=== PATIENT | female | born 1985 | race African-American/Black ===

== ENCOUNTER 2023-02-02 20:12 | Emergency (ER) | payer OTHER ==
--- OUTSIDE RECORDS SUMMARY | 2023-02-02 20:43 | XMS REPORT | Continuity of Care Document ---
:1985 Author Organization [facility] t Address [address] [facility] [address] [place] [address] Care Team Providers Name Role [facility], [facility] Primary Care Physician Unavailable GLENNA HOUSTON Attending Clinician Unavailable GLENNA HOUSTON Attending Clinician Unavailable Glenna Houston MD Attending Clinician RUPAL LI Attending Clinician Unavailable JEFFY POOL Attending Clinician Unavailable NATE MUNOZ Admitting Clinician Unavailable JEFFY POOL Admitting Clinician Unavailable Payers Payer Name Policy Type Policy Number Effective Date Expiration Date [facility] [id number] 2022 00:00:00 Problems This patient has no known problems. Allergies, Adverse Reactions, Alerts Allergy Allergy Status Severity Reaction(s) Onset Inactive Treating Comm ents Source Name Type Date Date Clinician Vancomyc Propensi Active Swelling Univ ers in ty to 01-28 ity of adverse 00:00: [place] reaction 00 Medical s Branch PENICILL DRUG Active Anaphylaxis Uni vers IN INGREDI 01-28 ity of 00:00: [place] 00 Medical Branch VANCOMYC DRUG Active Hives Univers IN INGREDI 01-28 ity of 00:00: 00 Medical Branch Penicill Propensi Active Anaphylaxis U nivers in ty to 01-28 ity of adverse 00:00: [place] reaction 00 Medical s Branch NO KNOWN Drug Active Univers ALLERGIE Class ity of S [facility] Social History Social Habit Start Date Stop Date Quantity Comments Source Exposure to 2023-01-17 2023-01-27 Not sure [facility] SARS-CoV-2 (event) 00:00:00 13:55:00 Medica l Branch Sex Ass[birth year] At [birth year] [facility] y of [place] 00:00:00 00:00:00 Medical Branch Smoking Status Start Date Stop Date Source Tobacco smoking consumption Univ [facility] Branch Medications Ordered Filled Start Stop Current Ordering Indication Dosage Frequency Signature Comments Components Source Medication Medication Date Date Medication? Clinician (SIG) Name Name amLODIPine Yes Univers 5 mg tablet 3-10 ity of 00:00: Medical Branch amLODIPine Yes Univers 5 mg tablet 3-10 ity of 00:00: [facility] Vital Signs Vital Name Observation Time Observation Value Comments Source Systolic blood 2023-01-28 18:47:00 140 mm[Hg] Univer sity of pressure [facility] Diastolic blood 2023-01-28 18:47:00 104 mm[Hg] Unive rsity of pressure [facility] Heart rate 2023-01-28 18:47:00 82 /min [facility] Body temperature 2023-01-28 18:42:00 36.33 [facility] Respiratory rate 2023-01-28 18:42:00 16 /min [facility] Body height 2023-01-28 18:42:00 170.2 cm [facility] Body weight 2023-01-28 18:42:00 59.149 kg [facility] BMI 2023-01-28 18:42:00 20.42 kg/m2 [facility] Oxygen saturation in 2023-01-28 18:42:00 100 /min [facility] Arterial blood by [facility] Pulse oximetry Branch Procedures This patient has no known procedures. Encounters Start End Encounter Admission Attending Care Care Encounter Source Date/Time Date/Time Type Type Clinicians Facility Department ID 2023-07-22 2023-07-22 Outpatient R GLENNA HOUSTON [facility] [id number] Univers 13:30:00 13:30:00 GLENNA HOUSTON [facility] 2023-06-30 2023-06-30 Outpatient R KATE HOUSTONNEFelix [facility] [id number] Univers 20:00:00 20:00:00 GLENNA HOUSTON [facility] 2023-01-28 2023-01-28 Office Celso [facility] [id number] [facility] 14:00:00 14:30:00 Visit Glenna Carvalho [facility] [id number] [place] [id number] [facility] [id number] [facility] AND [facility] [address] [facility] 2023-01-28 2023-01-28 Outpatient R GLENNA HOUSTON [facility] [id number] [facility] 14:00:00 14:07:29 GLENNA HOUSTON [facility] 2022-09-03 2022-09-05 Inpatient E JESSE LI MED [id number] 01:30:00 12:10:00 RUPAL bhatti [facility] 2022-04-25 2022-04-29 Inpatient E JAI POOL MED [id number] [facility] 19:17:00 12:00:00 DOMINICO Results This patient has no known results.
[2023-02-02] MEDS ORDERED: ONDANSETRON 4 MG/2 ML VIAL ONE (21:25)
[2023-02-02] MEDS ORDERED: NA CHLORIDE 0.9% 1,000 ML ONE (21:25)
[2023-02-02] MEDS ORDERED: CEFTRIAXONE 2000 MG/VIAL ONE (21:25)
[2023-02-02] MEDS ORDERED: NA CHLORIDE 0.9% 50 ML ONE (21:25)
[2023-02-02 21:55] LABS: Absolute Lymphocytes (CBC) 2.1 K/uL (0.7-4.9); Hematocrit 35.7 % (36.0-45.0); MCV 89.2 fL (80-100); MPV 8.6 fL (7.6-11.3)
[2023-02-02 21:59] LABS: Specific Gravity 1.019 (1.005-1.030); Urine Bacteria 20-50 /HPF (<20); Urine Bilirubin NEGATIVE (Negative); Urine Blood 2+ (Negative); Urine Clarity Turbid (Clear); Urine Color Yellow (Yellow); Urine Glucose NEGATIVE (Negative); Urine Mucus 1+ /HPF (None Seen); Urine Protein 1+ (Negative); Urine RBC <5 /HPF (None Seen); Urine Urobilinogen Normal (Normal); Urine pH 5.5 (5.0-7.0)
[2023-02-02] MEDS ORDERED: MORPHINE 4 MG/ML SYR ONE (22:00)
[2023-02-02] MEDS ORDERED: IBUPROFEN 200 MG TAB PO ONE (22:00)
[2023-02-02 22:14] LABS: Albumin 3.5 g/dL (3.4-5.0); Bilirubin Total 0.4 mg/dL (0.2-1.0); Protein, Total 8.2 g/dL (6.4-8.2)
--- NOTE | 2023-02-02 22:57 | RAD REPORT ---
EXAM DESCRIPTION: CTAbdomen Pelvis W Contrast - 02/02/2023 10:47 pm CLINICAL HISTORY: fever, flank pain, tubal ligation COMPARISON: No comparisons TECHNIQUE: CT of the abdomen and pelvis was performed with IV contrast. All CT scans are performed using dose optimization technique as appropriate and may include automated exposure control or mA/KV adjustment according to patient size. FINDINGS: Lower chest: No acute abnormality. Liver: No acute abnormality or suspicious lesions. Biliary: Cholecystectomy Stomach: No significant focal abnormality. Duodenum: No significant focal abnormality. Pancreas: Coarse calcifications in the region of the pancreatic head. The pancreatic duct is dilated measuring up to 14 millimeters. The body and tail the pancreas is mildly atrophic. Spleen: No significant abnormality. Adrenal: No suspicious lesions. Kidney/ureter: No hydronephrosis. No renal calculi. Insert kidneys hypoattenuation in the posterior a spect of the right interpolar kidney. No fluid collection identified. Retroperitoneum: No retroperitoneal adenopathy. Vascular: No aneurysm. Bowel: No significant focal abnormality. Normal appendix. Peritoneum: No ascites or free air. Bladder: Grossly unremarkable. Reproductive: No adnexal masses. Bones: No acute fracture. Other: n/a IMPRESSION: 1. Findings consistent with right-sided pyelonephritis. No abscess or hydronephrosis margo ntified. 2. Coarse calcifications in the region of the pancreatic head with pancreatic ductal dilatation. This likely is secondary to chronic pancreatitis. Recommend correlation with patient history. Clinical an d/or imaging follow-up is suggested.
--- NOTE | 2023-02-02 23:38 | ER ---
Nurse's Notes [facility] Name: Shabana Julio Age: 37 yrs Sex: Female : 1985 Arrival Date: 02/02/2023 Time: 20:12 Bed 20 Private MD: Diagnosis: Right-sided pyelonephritis Presentation: 02/02 20:57 Chief complaint: Patient states: "A few weeks ago it started as a bladder infection I vc1 increased my water and had cranberry juice and it started to get better but now it feels worse and I hurt in my back and my side.". Coronavirus screen: Vaccine status: Patient reports receiving the 2nd dose of the covid vaccine. plus booster; [employer] Client denies travel out of the [place] in the last 14 days. At this time, the client does not indicate any symptoms associated with coronavirus-19. Ebola Screen: Patient negative for fever greater than or equal to 101.5 degrees Fahrenheit, and additional compatible Ebola Virus Disease symptoms Patient denies exposure to infectious person. Patient denies travel to an Ebola-affected area in the 21 days before illness onset. No symptoms or risks identified at this time. Initial Sepsis Screen: Does the patient meet any 2 criteria? HR > 90 bpm. No. Patient's initial sepsis screen is negative. Does the patient have a suspected source of infection? Yes: Dysuria/Frequency/Urgency/UTI. Risk Assessment: Do you want to hurt yourself or someone else? Patient reports no desire to harm self or others. Onset of symptoms is unknown. 20:57 Method Of Arrival: Ambulatory vc1 20:57 Acuity: OPHELIA 3 vc1 Triage Assessment: 21:00 General: Appears in no apparent distress. uncomfortable, Behavior is calm, cooperative, vc1 appropriate for age. Pain: Complains of pain in posterior aspect of right lateral abdomen, meatus and right iliac crest. 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 - Social history:: Smoking status: Patient reports the use of cigarette tobacco products, 3-5 cigs/day. Screenin:01 Abuse screen: Denies threats or abuse. Nutritional screening: No deficits noted. vc1 Tuberculosis screening: No symptoms or risk factors identified. 23:55 [facility] ED Fall Risk Assessment (Adult) History of falling in the last 3 months, aa9 including since admission No falls in past 3 months (0 pts) Confusion or Disorientation No (0 pts) Intoxicated or Sedated No (0 pts) Impaired Gait No (0 pts) Mobility Assist Device Used No (0 pt) Altered Elimination No (0 pt) Score/Fall Risk Level 0 - 2 = Low Risk Oriented to surroundings, Maintained a safe environment, Educated pt \\T\\ family on fall prevention, incl call for assistance when getting out of bed. Assessment: 21:25 Reassessment: Patient appears in no apparent distress at this time. Patient and/or nj1 family updated on plan of care and expected duration. Pain level reassessed. Patient is alert, oriented x 3, equal unlabored respirations, skin warm/dry/pink. 21:25 Reassessment: See triage assessment. nj1 21:55 Reassessment: Patient appears in no apparent distress at this time. Patient and/or nj1 family updated on plan of care and expected duration. Pain level reassessed. Patient is alert, oriented x 3, equal unlabored respirations, skin warm/dry/pink. 23:04 Reassessment: Patient appears in no apparent distress at this time. Patient and/or nj1 family updated on plan of care and expected duration. Pain level reassessed. Patient is alert, oriented x 3, equal unlabored respirations, skin warm/dry/pink. Patient states feeling better. Patient states symptoms have improved. 23:54 Reassessment: Patient appears in no apparent distress at this time. Patient and/or aa9 family updated on plan of care and expected duration. Pain level reassessed. Patient is alert, oriented x 3, equal unlabored respirations, skin warm/dry/pink. Patient states feeling better. Vital Signs: 20:57 BP 151 / 95; Pulse 118; Resp 20; Temp 100.4; Pulse Ox 99% ; Weight 58.97 kg; Height 5 vc1 ft. 7 in. ; Pain 7/10; 21:55 Pain 7/10; nj1 23:04 Pain 4/10; nj1 23:14 BP 135 / 92; Pulse 76; Resp 16; Temp 98.9; Pulse Ox 99% on R/A; nj1 20:57 Body Mass Index 20.36 (58.97 kg, 170.18 cm) vc1 20:57 Pain Scale: Adult vc1 21:55 Pain Scale: Adult nj1 23:04 Pain Scale: Adult nj1 ED Course: 20:14 Patient arrived in ED. mr 20:43 Gunnar Jackson PA is PHCP. jmm 20:43 Blue Stevens MD is Attending Physician. m 20:59 Triage completed. vc1 21:00 Arm band placed on right wrist. vc1 21:11 Rachel Duncan, KRISHAN is Primary Nurse. nj1 22:00 Patient has correct armband on for positive identification. Bed in low position. Call aa9 light in reach. Side rails up X2. 22:00 Pulse ox on. NIBP on. aa9 22:30 Second set of blood cultures drawn by me. nj1 22:48 CT Abd/Pelvis - IV Contrast Only In Process Unspecified. EDMS 23:54 No provider procedures requiring assistance completed. IV discontinued, intact, aa9 bleeding controlled, No redness/swelling at site. Pressure dressing applied. Administered Medications: 21:25 Drug: NS 0.9% IV 1000 ml Route: IV; Rate: 1 bolus; Site: left antecubital; nj1 23:30 Follow up: Response: No adverse reaction; IV Status: Completed infusion; IV Intake: nj1 1000ml 21:25 Drug: Ondansetron IVP 4 mg Route: IVP; Site: left antecubital; nj1 22:00 Follow up: Response: No adverse reaction nj1 21:55 Drug: morphine IVP or IV 4 mg Route: IVP; Infused Over: 4 mins; Site: left antecubital; nj1 23:05 Follow up: Response: No adverse reaction; Pain is decreased nj1 21:55 Drug: Ibuprofen PO 600 mg Route: PO; nj1 23:04 Follow up: Response: No adverse reaction; Pain is decreased nj1 22:40 Drug: Rocephin IV 2 grams Route: IV; Rate: calculated rate; Site: left antecubital; nj1 23:30 Follow up: Response: No adverse reaction; IV Status: Completed infusion; IV Intake: [id number] Medication: 23:55 VIS not applicable for this client. aa9 Intake: 23:30 IV: 50ml; Total: 50ml. nj1 23:30 IV: 1000ml; Total: 1050ml. nj1 Outcome: 23:37 Discharge ordered by . jada 23:54 Discharged to home ambulatory. aa9 23:54 Condition: stable 23:54 Discharge instructions given to patient, Instructed on discharge instructions, follow up and referral plans. medication usage, Demonstrated understanding of instructions, follow-up care, medications, Prescriptions given X 1. 23:55 Patient left the ED. aa9 Signatures: Dispatcher [employer] EDMS Gunnar Jackson PA PA jmm GarciaCallie mr Tarsha Caceres RN RN 1 Isabel Conn RN RN 9 Rachel Duncan RN RN nj1 Corrections: (The following items were deleted from the chart) 21:00 20:59 Allergies: No Known Allergies; 1 1 23:05 22:13 Pain: nj1 nj1 23:23 23:05 Reassessment: See triage assessment. nj1 nj1 23:24 23:23 Reassessment: Patient appears in no apparent distress at this time. Patient nj1 and/or family updated on plan of care and expected duration. Pain level reassessed. Patient is alert, oriented x 3, equal unlabored respirations, skin warm/dry/pink. nj1
--- NOTE | 2023-02-02 23:38 | EDPHYS ---
Physician Documentation [facility] Name: Shabana Julio Age: 37 yrs Sex: Female : 1985 Arrival Date: 02/02/2023 Time: 20:12 Bed 20 Private MD: ED Physician Blue Stevens HPI: 02/02 21:00 This 37 yrs old Black Female presents to ER via Ambulatory with complaints of Urinary jmm Problem. 21:00 Onset: The symptoms/episode began/occurred gradually, 3 week(s) ago. This is a 37 year jmm old female with a history of htn, uc that presents to the ED with complaints of back pain, fever, dysuria Patient initially attempted to treat with cranberry juice. . 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 - Social history:: Smoking status: Patient reports the use of cigarette tobacco products, 3-5 cigs/day. ROS: 21:00 Constitutional: Positive for body aches, fever. jmm 21:00 Back: Positive for pain with movement. 21:00 : Positive for urinary symptoms. 21:00 All other systems are negative. Exam: 21:00 Constitutional: This is a well developed, well nourished patient who is awake, alert, jmm and in no acute distress. Head/Face: atraumatic. Eyes: EOMI, no conjunctival erythema appreciated ENT: Moist Mucus Membranes Neck: Trachea midline, Supple Chest/axilla: Normal chest wall appearance and motion. Cardiovascular: Regular rate and rhythm. No edema appreciated Respiratory: Normal respirations, no respiratory distress appreciated Abdomen/GI: Non distended Back: Normal ROM Skin: General appearance color normal MS/ Extremity: Moves all extremities, no obvious deformities appreciated, no edema noted to the lower extremities Neuro: Awake and alert Psych: Behavior is normal, Mood is normal, Patient is cooperative and pleasant Vital Signs: 20:57 BP 151 / 95; Pulse 118; Resp 20; Temp 100.4; Pulse Ox 99% ; Weight 58.97 kg; Height 5 vc1 ft. 7 in. ; Pain 7/10; 21:55 Pain 7/10; nj1 23:04 Pain 4/10; nj1 23:14 BP 135 / 92; Pulse 76; Resp 16; Temp 98.9; Pulse Ox 99% on R/A; nj1 20:57 Body Mass Index 20.36 (58.97 kg, 170.18 cm) vc1 20:57 Pain Scale: Adult vc1 21:55 Pain Scale: Adult nj1 23:04 Pain Scale: Adult nj1 MDM: 21:07 Patient medically screened. [facility] 02/03 00:23 Differential diagnosis: pyelonephritis, uti, sepsis. Data reviewed: vital signs, nurses [facility] notes, lab test result(s), radiologic studies, CT scan. Consideration of Admission/Observation. I considered the following discharge prescriptions or medication management in the emergency department Medications were administered in the Emergency Department. See MAR. Counseling: I had a detailed discussion with the patient and/or guardian regarding: the historical points, exam findings, and any diagnostic results supporting the discharge/admit diagnosis, lab results, radiology results, the need for outpatient follow up, the need for further work-up and treatment in the hospital, to return to the emergency department if symptoms worsen or persist or if there are any questions or concerns that arise at home. Refusal of service: The patient/guardian displays adequate decision making capability and despite a detailed discussion of alternatives, benefits, risks, and consequences refuses: Admission to the hospital for further work-up and treatment. 02/02 21:00 Order name: CBC with Diff; Complete Time: 22:07 [facility] 02/02 21:00 Order name: CMP; Complete Time: 22:21 [facility] 02/02 21:00 Order name: Lipase; Complete Time: 22:21 [facility] 02/02 21:00 Order name: Blood Culture Adult (2) [facility] 02/02 21:00 Order name: Lactate w/ 2H reflex if indic.; Complete Time: 23:04 [facility] 02/02 21:00 Order name: Urinalysis w/ reflexes; Complete Time: 22:07 [facility] 02/02 22:04 Order name: Urine Culture [facility] 02/02 22:08 Order name: PREGU [facility] 02/02 22:08 Order name: CT Abd/Pelvis - IV Contrast Only; Complete Time: 23:04 [facility] 02/02 21:00 Order name: IV Saline Lock; Complete Time: 21:32 [facility] 02/02 21:00 Order name: Labs collected and sent; Complete Time: 22:48 [facility] Administered Medications: 02/02 21:25 Drug: NS 0.9% IV 1000 ml Route: IV; Rate: 1 bolus; Site: left antecubital; nj1 23:30 Follow up: Response: No adverse reaction; IV Status: Completed infusion; IV Intake: nj1 1000ml 21:25 Drug: Ondansetron IVP 4 mg Route: IVP; Site: left antecubital; nj1 22:00 Follow up: Response: No adverse reaction [facility] 21:55 Drug: morphine IVP or IV 4 mg Route: IVP; Infused Over: 4 mins; Site: left antecubital; nj1 23:05 Follow up: Response: No adverse reaction; Pain is decreased nj1 21:55 Drug: Ibuprofen PO 600 mg Route: PO; ms1 23:04 Follow up: Response: No adverse reaction; Pain is decreased [facility] 22:40 Drug: Rocephin IV 2 grams Route: IV; Rate: calculated rate; Site: left antecubital; nj1 23:30 Follow up: Response: No adverse reaction; IV Status: Completed infusion; IV Intake: [id number] Disposition: 02/03 04:47 Co-signature as Attending Physician, Blue Stevens MD I reviewed the patient's care rt provided by the Advanced Practice Provider and agree with the diagnosis and treatment plan. Disposition Summary: 02/02/23 23:37 Discharge Ordered Location: Home [facility] Condition: Stable [facility] Diagnosis - Right-sided pyelonephritis [facility] Followup: [facility] - With: Private Physician - When: 2 - 3 days - Reason: Recheck today's complaints, Continuance of care, Re-evaluation by your physician Discharge Instructions: - Discharge Summary Sheet [facility] - Pyelonephritis, Adult [facility] Forms: - Medication Reconciliation Form [facility] - Thank You Letter [facility] - Antibiotic Education [facility] - Prescription Opioid Use [facility] Prescriptions: - cefpodoxime 200 mg Oral Tablet - take 1 tablet by ORAL route every 12 hours for 10 days with food; 20 tablet; [facility] Refills: 0, Product Selection Permitted Signatures: Dispatcher [employer]NEF[employer] EDME Gunnar Jackson PA PA jmm Calcote, Vanessa, RN RN vc1 Blue Stevens MD MD rt Rachel Duncan RN RN nj1 Corrections: (The following items were deleted from the chart) 02/02 21:00 20:59 Allergies: No Known Allergies; 1 vc1
[2023-02-03 00:40] VITALS: O2SAT 99
[2023-02-03 00:45] VITALS: BP 135/92; TEMP 98.9
== END 2023-02-02 23:55 | disposition home or self-care (01) ==
LOC: ER 20:12
DX: N12 Tubulo-interstitial nephritis, not specified as acute or chronic (principal); F17.210 Nicotine dependence, cigarettes, uncomplicated; Z88.0 Allergy status to penicillin; Z88.3 Allergy status to other anti-infective agents
CPT/HCPCS: 96365; 96361; 87040 ×2; 87088; 85025; 81001; 87086; 36415; 81025; 83605; 83690; 80053; 74177; 96375; 99284; J2405; J0696; J7030

== ENCOUNTER 2023-02-23 15:23 | Emergency (ER) | payer OTHER ==
--- OUTSIDE RECORDS SUMMARY | 2023-02-23 15:26 | XMS REPORT | Continuity of Care Document ---
:1985 Author Organization [facility] t Address [address] [facility] [address] [place] [address] Care Team Providers Name Role [facility], [facility] Primary Care Physician Unavailable GLENNA HOUSTON Attending Clinician Unavailable GLENNA HOUSTON Attending Clinician Unavailable Glenna Houston MD Attending Clinician RUPAL LI Attending Clinician Unavailable JEFFY POOL Attending Clinician Unavailable NATE MUNOZ Admitting Clinician Unavailable JEFFY POOL Admitting Clinician Unavailable Payers Payer Name Policy Type Policy Number Effective Date Expiration Date S [facility] [id number] 2022 00:00:00 Problems This patient has no [...] Active Univers ALLERGIE Class ity of S [facility] Social History Social Habit Start Date Stop Date Quantity Comments Source Exposure to 2023-01-17 2023-01-27 Not sure [facility] SARS-CoV-2 (event) 00:00:00 13:55:00 Medica l Branch Sex Assigned At [address] [facility] y of [place] 00:00:00 00:00:00 Medical Branch Smoking Status Start Date Stop Date Source Tobacco smoking consumption Univ [facility] Branch Medications Ordered Filled Start Stop Current Ordering Indication Dosage Frequency Signature Comments Components Source Medication Medication Date Date Medication? Clinician (SIG) Name Name amLODIPine Yes Univers 5 mg tablet 3-10 ity of 00:00: Medical Branch amLODIPine Yes Univers 5 mg tablet 3-10 ity of 00:00: [facility] Vital Signs Vital Name Observation Time Observation Value Comments Source Systolic blood 2023-01-28 18:47:00 140 mm[Hg] Univer sity of pressure [facility] Diastolic blood 2023-01-28 18:47:00 104 mm[Hg] Unive rsity of pressure [facility] Heart rate 2023-01-28 18:47:00 82 /min [facility] Body temperature 2023-01-28 18:42:00 36.33 Jenelle [facility] Respiratory rate 2023-01-28 18:42:00 16 /min [facility] Body height 2023-01-28 18:42:00 170.2 cm [facility] Body weight 2023-01-28 18:42:00 59.149 kg [facility] BMI 2023-01-28 18:42:00 20.42 kg/m2 [facility] Oxygen saturation in 2023-01-28 18:42:00 100 /min [facility] Arterial blood by [place] [facility] Pulse oximetry Branch Procedures This patient has no known procedures. Encounters Start End Encounter Admission Attending Care Care Encounter Source Date/Time Date/Time Type Type Clinicians Facility Department ID 2023-07-22 2023-07-22 Outpatient R FREDKATE SAINZCODY [facility] [id number] Univers 13:30:00 13:30:[address] [facility] 2023-06-30 2023-06-30 [facility] [id number] Univers 20:00:00 20:00:[address] [facility] 2023-02-24 2023-02-24 [facility] [id number] 20:00: 20:00: KATE HOUSTONFLFelix [facility] 2023-01-28 2023-01-28 Office Rafatgiles [facility] [id number] [facility] 14:00:00 14:30:00 [facility] [id number] [place] [id number] [facility] [id number] Micheal gomez [facility] [address] [facility] 2023-01-28 2023-01-28 Outpatient R AURY KATEFLFelix [facility] [id number] Univers 14:00:00 14:07:29 AURY KATEFLFelix [facility] 2022-09-03 2022-09-05 Inpatient E JESSE LI MED [id number] 01:30:00 12:10:00 RUPAL bhatti [facility] 2022-04-25 2022-04-29 Inpatient E YRN LUIS MED [id number] [facility] 19:17:00 12:00:00 SUMIKO Results This patient has no known results.
[2023-02-23] MEDS ORDERED: ONDANSETRON 4 MG/2 ML VIAL ONE ×2 (15:55→19:30)
[2023-02-23] MEDS ORDERED: Ringers Lactate 1,000 ML IV ONE (15:55)
[2023-02-23 16:13] LABS: Absolute Lymphocytes (CBC) 2.1 K/uL (0.7-4.9); Hematocrit 40.2 % (36.0-45.0); Lymphocytes % 29.9 % (15.3-44.8); MCV 88.9 fL (80-100); MPV 8.3 fL (7.6-11.3); RBC Red Blood Cell Count 4.52 M/uL (3.86-4.86)
[2023-02-23 16:30] LABS: Albumin 4.2 g/dL (3.4-5.0); Bilirubin Total 1.5 mg/dL (0.2-1.0); Potassium 3.5 mEq/L (3.5-5.1); Protein, Total 8.9 g/dL (6.4-8.2)
[2023-02-23] MEDS ORDERED: MORPHINE 4 MG/ML SYR ONE (17:00)
[2023-02-23 18:27] LABS: Specific Gravity 1.029 (1.005-1.030)
[2023-02-23 18:28] LABS: Specific Gravity 1.029 (1.005-1.030); Urine Bacteria <20 /HPF (<20); Urine Bilirubin NEGATIVE (Negative); Urine Blood 2+ (Negative); Urine Clarity Clear (Clear); Urine Color Yellow (Yellow); Urine Glucose NEGATIVE (Negative); Urine Mucus 4+ /HPF (None Seen); Urine Protein 1+ (Negative); Urine Urobilinogen 1+ (Normal)
--- NOTE | 2023-02-23 19:58 | RAD REPORT ---
EXAM DESCRIPTION: CT - Abdomen Pelvis W Contrast - 02/23/2023 7:13 pm CLINICAL HISTORY: vomiting, diarrhea COMPARISON: Abdomen Pelvis W Contrast dated 02/02/2023 TECHNIQUE: Thin cut axial CT imaging of the abdomen and pelvis was performed following intravenous a dministration of 100 mL Isovue 300. Multiplanar reformats were generated and reviewed. All CT scans are performed using dose optimization technique as appropriate and may include automated exposure control or mA/KV adjustment according to patient size. FINDINGS: No suspicious findings in the lung bases. Diffuse hepatic parenchymal hypoattenuation suggesting steatosis. No focal hepatic lesions. Status po st cholecystectomy. Stable sequelae of chronic pancreatitis with dystrophic calcifications in the reg ion of the pancreatic head, dilation and tortuosity of the main pancreatic duct, as well as cystic le sions in the region of the head of the pancreas, the largest measuring 1.3 x 1.2 centimeter. Adrenal glands and spleen show no suspicious findings. No evidence of intrahepatic biliary ductal dilation. Symmetric renal function is seen with no hydronephrosis or suspicious renal mass. No dilated bowel loops or bowel wall thickening. Nonspecific fluid filling within nondistended small bowel loops. No free air, free fluid or inflammatory stranding. No hernia, mass or bulky lymphadenopa thy. The urinary bladder is without significant finding. No suspicious bony findings. IMPRESSION: Nonspecific fluid filling within nondistended small bowel loops, could relate to enterit is or diarrheal state. Other stable findings including diffuse hepatic steatosis and sequelae of chronic pancreatitis.
--- NOTE | 2023-02-23 20:03 | EDPHYS ---
Physician Documentation [facility] Name: Shabana Julio Age: 37 yrs Sex: Female : 1985 Arrival Date: 02/23/2023 Time: 15: Bed 10 Private MD: ED Physician Linda Perea HPI: 02/23 15:33 This 37 yrs old Black Female presents to ER via Ambulatory with complaints of Vomiting. jmm 15:33 The patient presents to the emergency department with nausea, vomiting, diarrhea, jmm abdominal pain. Onset: The symptoms/episode began/occurred gradually, 1 day(s) ago. Possible causes: unknown. The symptoms are aggravated by nothing. The symptoms are alleviated by nothing. Associated signs and symptoms: Pertinent positives: abdominal pain, Pertinent negatives: fever. 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 - Social history:: Smoking status: Patient reports the use of cigarette tobacco products, smokes one-half pack cigarettes per day. ROS: 15:33 Constitutional: Negative for fever, chills, and weight loss, Cardiovascular: Negative jmm for chest pain, palpitations, and edema, Respiratory: Negative for shortness of breath, cough, wheezing, and pleuritic chest pain. 15:33 Abdomen/GI: Positive for abdominal pain, nausea and vomiting, diarrhea. 15:33 All other systems are negative. Exam: 15:33 Constitutional: This is a well developed, well nourished patient who is awake, alert, jmm and in no acute distress. Head/Face: atraumatic. Eyes: EOMI, no conjunctival erythema appreciated ENT: Moist Mucus Membranes Neck: Trachea midline, Supple Chest/axilla: Normal chest wall appearance and motion. Cardiovascular: Regular rate and rhythm. No edema appreciated Respiratory: Normal respirations, no respiratory distress appreciated 15:33 Back: Normal ROM Skin: General appearance color normal MS/ Extremity: Moves all extremities, no obvious deformities appreciated, no edema noted to the lower extremities Neuro: Awake and alert Psych: Behavior is normal, Mood is normal, Patient is cooperative and pleasant 15:33 Abdomen/GI: Inspection: abdomen appears normal, Bowel sounds: normal, Palpation: soft, mild abdominal tenderness, in all quadrants. Vital Signs: 15:28 BP 160 / 106; Pulse 98; Resp 16; Temp 97.2(TE); Pulse Ox 100% ; Weight 58.97 kg; Height iw 5 ft. 7 in. ; Pain 8/10; 16:15 BP 155 / 107; Pulse 97; Resp 18; Pulse Ox 99% on R/A; eh3 17:15 BP 158 / 111; Pulse 95; Resp 16; Pulse Ox 99% on R/A; eh3 19:15 BP 157 / 114; Pulse 94; Resp 16; Pulse Ox 99% on R/A; eh3 15:28 Body Mass Index 20.36 (58.97 kg, 170.18 cm) iw 15:28 Pain Scale: Adult iw MDM: 15:[address] [facility] 22:07 Differential diagnosis: Gastritis, cholecystitis, acute pancreatitis, enterocolitis. [facility] Data reviewed: vital signs, nurses notes, lab test result(s), radiologic studies, CT scan. Consideration of Admission/Observation Escalation of care including admission/observation considered. I considered the following discharge prescriptions or medication management in the emergency department Medications were administered in the Emergency Department. See MAR. Counseling: I had a detailed discussion with the patient and/or guardian regarding: the historical points, exam findings, and any diagnostic results supporting the discharge/admit diagnosis, lab results, radiology results, the need for outpatient follow up, to return to the emergency department if symptoms worsen or persist or if there are any questions or concerns that arise at home. Response to treatment: the patient's symptoms have markedly improved after treatment, and as a result, I will discharge patient. 02/23 15:33 Order name: CBC with Diff; Complete Time: 16:15 [facility] 02/23 15:33 Order name: CMP; Complete Time: 16:33 [facility] 02/23 15:33 Order name: Lipase; Complete Time: 16:33 [facility] 02/23 15:34 Order name: Urinalysis w/ reflexes; Complete Time: 18:33 [facility] 02/23 15:34 Order name: PREGU; Complete Time: 18:42 [facility] 02/23 16:35 Order name: CT Abd/Pelvis - IV Contrast Only; Complete Time: 19:59 [facility] 02/23 15:33 Order name: IV Saline Lock; Complete Time: 16:07 [facility] 02/23 15:33 Order name: Labs collected and sent; Complete Time: 16:07 [facility] Administered Medications: 16:00 Drug: Lactated Ringers Solution IV 1000 ml Route: IV; Rate: 150 ml/hr; Site: right 3 antecubital; 20:25 Follow up: IV Status: Completed infusion; IV Intake: 850ml [facility] 16:00 Drug: Ondansetron IVP 4 mg Route: IVP; Site: right antecubital; 3 17:04 Follow up: Response: No adverse reaction 3 16:55 Drug: morphine IVP or IV 4 mg Route: IVP; Infused Over: 4 mins; Site: right antecubital;3 17:20 Follow up: Response: Pain is decreased 3 19:30 Drug: Ondansetron IVP 4 mg Route: IVP; Site: right antecubital; 3 20:00 Follow up: Response: Nausea is decreased 3 Disposition Summary: 02/23/23 20:01 Discharge Ordered Location: Home [facility] Condition: Stable [facility] Diagnosis - Vomiting [facility] - Diarrhea, unspecified [facility] Followup: [facility] - With: Private Physician - When: 2 - 3 days - Reason: Recheck today's complaints, Continuance of care, Re-evaluation by your physician Discharge Instructions: - Discharge Summary Sheet [facility] - Food Choices to Help Relieve Diarrhea, Adult jm - Vomiting, Adult [facility] Forms: - Medication Reconciliation Form [facility] - Thank You Letter [facility] - Antibiotic Education [facility] - Prescription Opioid Use [facility] Prescriptions: - ondansetron 4 mg Oral Tablet,disintegrating - take 1 tablet by ORAL route every 4 to 6 hours As needed as needed for nausea m and vomiting; 20 tablet; Refills: 0, Product Selection Permitted - dicyclomine 20 mg Oral Tablet - take 1 tablet by ORAL route 4 times per day As needed; 30 tablet; Refills: 0, [facility] Product Selection Permitted Signatures: Dispatcher [employer] Gunnar Crowe PA PA jmm Williams, Irene, RN RN Rios, Sandra, RN RN eh3
--- NOTE | 2023-02-23 20:03 | ER ---
Nurse's Notes [facility] [place], [place] Name: Shabana Julio Age: 37 yrs Sex: Female : 1985 Arrival Date: 02/23/2023 Time: 15:23 Bed 10 Private MD: Diagnosis: Vomiting;Diarrhea, unspecified Presentation: 02/23 15:28 Chief complaint: Patient states: woke up in middle of night and now feels crampy and iw dehydrated , reports abd cramps when she tries to drink anything. Coronavirus screen: At this time, the client does not indicate any symptoms associated with coronavirus-19. Ebola Screen: Patient negative for fever greater than or equal to 101.5 degrees Fahrenheit, and additional compatible Ebola Virus Disease symptoms Patient denies exposure to infectious person. Patient denies travel to an Ebola-affected area in the 21 days before illness onset. No symptoms or risks identified at this time. Initial Sepsis Screen: Does the patient meet any 2 criteria? No. Patient's initial sepsis screen is negative. Does the patient have a suspected source of infection? No. Patient's initial sepsis screen is negative. Risk Assessment: Do you want to hurt yourself or someone else? Patient reports no desire to harm self or others. Onset of symptoms was February 22, 2023. 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 - Social history:: Smoking status: Patient reports the use of cigarette tobacco products, smokes one-half pack cigarettes per day. Screenin:35 [facility] ED Fall Risk Assessment (Adult) Score/Fall Risk Level 0 - 2 = Low Risk. Abuse eh3 screen: Denies threats or abuse. Denies injuries from another. Nutritional screening: No deficits noted. Tuberculosis screening: No symptoms or risk factors identified. Assessment: 15:35 General: Appears in no apparent distress. uncomfortable, Behavior is calm, cooperative, eh3 appropriate for age. Pain: Complains of pain in abdomen. Neuro: Level of Consciousness is awake, alert, obeys commands, Oriented to person, place, time, situation. Cardiovascular: Capillary refill < 3 seconds Patient's skin is warm and dry. Respiratory: Airway is patent Respiratory effort is even, unlabored, Respiratory pattern is regular, symmetrical. GI: Abdomen is round non-distended, Reports cramping, intolerance of fluids, nausea, vomiting. : No signs and/or symptoms were reported regarding the genitourinary system. EENT: No signs and/or symptoms were reported regarding the EENT system. Derm: Skin is pink, warm \T\ dry. Musculoskeletal: No signs and/or symptoms reported regarding the musculoskeletal system. 16:15 Reassessment: Patient appears in no apparent distress at this time. Patient and/or 3 family updated on plan of care and expected duration. Pain level reassessed. Patient is alert, oriented x 3, equal unlabored respirations, skin warm/dry/pink. 17:15 Reassessment: Patient appears in no apparent distress at this time. Patient and/or 3 family updated on plan of care and expected duration. Pain level reassessed. Patient is alert, oriented x 3, equal unlabored respirations, skin warm/dry/pink. Patient states symptoms have improved. 18:15 Reassessment: Patient appears in no apparent distress at this time. Patient and/or 3 family updated on plan of care and expected duration. Pain level reassessed. Patient is alert, oriented x 3, equal unlabored respirations, skin warm/dry/pink. 19:15 Reassessment: Patient appears in no apparent distress at this time. Patient and/or 3 family updated on plan of care and expected duration. Pain level reassessed. Patient is alert, oriented x 3, equal unlabored respirations, skin warm/dry/pink. Vital Signs: 15:28 BP 160 / 106; Pulse 98; Resp 16; Temp 97.2(TE); Pulse Ox 100% ; Weight 58.97 kg; Height iw 5 ft. 7 in. ; Pain 8/10; 16:15 BP 155 / 107; Pulse 97; Resp 18; Pulse Ox 99% on R/A; eh3 17:15 BP 158 / 111; Pulse 95; Resp 16; Pulse Ox 99% on R/A; eh3 19:15 BP 157 / 114; Pulse 94; Resp 16; Pulse Ox 99% on R/A; eh3 15:28 Body Mass Index 20.36 (58.97 kg, 170.18 cm) iw 15:28 Pain Scale: Adult iw ED Course: 15:24 Patient arrived in ED. rg4 15:28 Gunnar Jackson PA is PHCP. m 15:28 Linda Perea MD is Attending Physician. m 15:30 Triage completed. iw 15:31 Arm band placed on. iw 15:32 Sandra Rios, KRISHAN is Primary Nurse. eh3 15:35 Patient has correct armband on for positive identification. Bed in low position. Call eh3 light in reach. Pulse ox on. NIBP on. Door closed. Noise minimized. Lights dimmed. Warm blanket given. 16:00 Inserted saline lock: 22 gauge in right antecubital area, using aseptic technique. eh3 Blood collected. 16:50 Radiology exam delayed due to test not completed at this time. [id number] 19:15 CT Abd/Pelvis - IV Contrast Only In Process Unspecified. EDMS 20:20 No provider procedures requiring assistance completed. IV discontinued, intact, eh3 bleeding controlled, No redness/swelling at site. Pressure dressing applied. Administered Medications: 16:00 Drug: Lactated Ringers Solution IV 1000 ml Route: IV; Rate: 150 ml/hr; Site: right eh3 antecubital; 20:25 Follow up: IV Status: Completed infusion; IV Intake: 850ml eh3 16:00 Drug: Ondansetron IVP 4 mg Route: IVP; Site: right antecubital; eh3 17:04 Follow up: Response: No adverse reaction eh3 16:55 Drug: morphine IVP or IV 4 mg Route: IVP; Infused Over: 4 mins; Site: right antecubital;eh3 17:20 Follow up: Response: Pain is decreased eh3 19:30 Drug: Ondansetron IVP 4 mg Route: IVP; Site: right antecubital; eh3 20:00 Follow up: Response: Nausea is decreased eh3 Medication: 20:20 VIS not applicable for this client. eh3 Intake: 20:25 IV: 850ml; Total: 850ml. eh3 Outcome: 20:01 Discharge ordered by MD. elias 20:20 Discharged to home ambulatory. eh3 20:20 Condition: stable 20:20 Discharge instructions given to patient, Instructed on discharge instructions, follow up and referral plans. medication usage, Demonstrated understanding of instructions, follow-up care, medications, Prescriptions given X 2. 20:28 Patient left the ED. 3 Signatures: Dispatcher [employer] EDMS Gunnar Jackson PA PA jmm Williams, Irene, RN RN Kimmie Teresa 4 Sandra Rios RN RN 3 Trinity Gonzalez [id number] Corrections: (The following items were deleted from the chart) 15:31 15:28 Pulse 98bpm; Resp 16bpm; Pulse Ox 100%; Temp 97.2F Temporal; 58.97 kg; Height 5 iw ft. 7 in.; BMI: 20.3; Pain 8/10, Adult; iw
[2023-02-23 20:50] VITALS: TEMP 97.2
[2023-02-23 20:51] VITALS: O2SAT 99
[2023-02-23 20:55] VITALS: BP 157/114
== END 2023-02-23 20:28 | disposition home or self-care (01) ==
LOC: ER 15:23
DX: R11.2 Nausea with vomiting, unspecified (principal); R19.7 Diarrhea, unspecified; I10 Essential (primary) hypertension; F17.210 Nicotine dependence, cigarettes, uncomplicated; Z88.0 Allergy status to penicillin; Z88.3 Allergy status to other anti-infective agents; Z98.82 Breast implant status
CPT/HCPCS: 85025; 81001; 36415; 81025; 83690; 80053; 74177; Q9967; J2405 ×2; J7120